=== PATIENT | male | born 1955 | race Caucasian/White ===

== ENCOUNTER 2016-10-07 12:51 | Emergency (ER) | payer OTHER ==
[~2016-10-07] VITALS: Ht 170.2 cm; Wt 91.5 kg
[~2016-10-07 12:51] MED LIST: ASPI81TA82 PO; DIAZ5 PO; IBUP600T26 PO; OMEP20TA PO; SIMV20TA PO; TAB-TAB PO; VITA500C PO
[2016-10-07 12:57] VITALS: BP 151/97; PULSE 71; RESP 15; TEMP 98.2; O2SAT 96
--- NOTE | 2016-10-07 13:14 | PD ---
HPI Chief Complaint: Foreign Body Time Seen by Provider: 13:08 Travel History International Travel<30 days: No Contact w/Intl Traveler<30days: No Traveled to known affect area: No History of Present Illness HPI This is a 60-year-old male presents for evaluation of foreign body to the dorsal right wrist. He reports a prior to arrival he was on tingling some efficient lines when a fishing hook became embedded in the dorsal aspect of his right wrist. He did not actually see this fishing hook prior to it puncturing the skin and so he does not know if the georgette was broken off prior to puncturing his skin. He does not know if it is a full fishing hook versus just the body of the fishing hook that is embedded. There is associated mild discomfort. Denies any range of motion limitations or numbness distal to the injury site. Last tetanus vaccination unknown. No other complaints. PFSH Past Medical History Arthritis: Yes (osteoarthritis) Anxiety: Yes Depression: Yes High Cholesterol: Yes Gastrointestinal Disorders: Yes (colon polyps) GERD: Yes Headaches: Yes Musculoskeletal: Yes (severe joint pain) Neurologic: Yes (head injury) Past Surgical History Eye Surgery: Yes (orbital fx) Other Surgery: Yes (DEVIATED SEPTUM REPAIR) Social History Alcohol Use: Yes (occassional) Tobacco Use: No Substance Use: Yes (occassional marijuana) Allergies-Medications (Allergen,Severity, Reaction): Coded Allergies: Codeine (Verified Adverse Reaction, Severe, Nausea/Vomiting, 10/07/16) Reported Meds & Prescriptions Reported Meds & Active Scripts Active Doxycycline Hyclate 100 Mg Cap 100 Mg PO BID 3 Days Reported Baclofen 10 Mg Tab 10 Mg PO Q8HR PRN Diazepam 5 Mg Tab 5 Mg PO BID PRN Omeprazole 20 Mg Tab 20 Mg PO DAILY Simvastatin 20 Mg Tab 20 Mg PO DAILY Review of Systems Musculoskeletal: Positive: Pain Skin: Positive Other (puncture wound, foreign body) Physical Exam Narrative GENERAL: Well-developed well-nourished male in no acute distress SKIN: Warm and dry. There is a physician embedded in the dorsal aspect of the right wrist. No bleeding. Extremities: Skin as noted above. Uncertain based on examination whether the actual fishing georgette is still intact underneath the skin. Data Data Last Documented VS Vital Signs Date Time Temp Pulse Resp B/P Pulse Ox O2 Delivery O2 Flow Rate FiO2 10/07/16 12:57 98.2 71 15 151/97 96 Orders Lidocai-Epi 1%-1:100,000 Inj (Xylocaine- (10/07/16 13:15) Tetanus/Diphtheria Tox Adult (Tetanus/Di (10/07/16 13:15) Wrist, Limited (Ap&Lat) (10/07/16 ) MDM Medical Decision Making Medical Screen Exam Complete: Yes Emergency Medical Condition: Yes Medical Record Reviewed: Yes Interpretation(s) CONCLUSION: A fishing pole is present in the dorsal soft tissues of the proximal carpal row with no underlying bony abnormality. Differential Diagnosis Retained foreign body, puncture wound, vascular injury Narrative Course Because history is uncertain in regards to the shape and wholeness of the fishing hook, and x-ray will be performed in order to assess the foreign body better. It will then be removed, he verbally consents. Tetanus status updated. The fishhook was removed without incident, the patient verbally consented to the procedure. He is being discharged with doxycycline prophylactically. Procedures Procedure Narrative Foreign body removal: Dorsal right wrist was prepped with Betadine. The area was anesthetized with lidocaine with epinephrine. The fish hook was pulled out through the entrance wound. The patient tolerated procedure well. Diagnosis Primary Impression: History of retained foreign body fully removed Additional Instructions: Medication as prescribed. Wash the wound with soap and water on a daily basis. Return for any evidence of infection such as increasing redness around the wound, red streaks up the arm, fevers. Med/Other Pt SpecificInfo: Prescription(s) given, Wound Care Scripts Doxycycline Hyclate 100 Mg [id number] Mg PO BID 3 Days Ref 0 Prov:Puja Dorsey MD 10/07/16 Disposition: 01 DISCHARGE HOME Condition: Stable Hayden Miller Oct 07, 2016 13:14
[2016-10-07] MEDS ORDERED: TETANUS/DIPHTHERIA TOXOID ADULT 0.5 ML VIAL IM ONE (13:15)
[2016-10-07] MEDS ORDERED: LIDOCAINE 1%/EPINEPHrine 1:100,000 SOLN 20 ML VIAL INFIL ONE (13:15)
[2016-10-07] MEDS ORDERED: BACL10TA PO (13:18)
[2016-10-07] MEDS ORDERED: OMEP20TA PO (13:18)
[2016-10-07] MEDS ORDERED: DIAZ5TAB PO (13:18)
[2016-10-07] MEDS ORDERED: SIMV20TA PO (13:18)
[2016-10-07] MEDS ORDERED: DOXY100C PO (13:31)
--- NOTE | 2016-10-07 13:31 | RADHPO ---
EXAM DATE/TIME: 10/07/2016 13:13 [facility] COMPARISON: No previous studies available for comparison. INDICATIONS : Right wrist pain. Patient has fishing hook stuck in wrist. MEDICAL HISTORY : None. SURGICAL HISTORY : None. ENCOUNTER: Initial ACUITY: 1 day PAIN SCORE: 4/10 LOCATION: Right wrist. FINDINGS: Two view examination of the right wrist demonstrates no soft tissue swelling, dislocation, or fractur e. The joint spaces are maintained. Bony mineralization is normal. A fishing hook is present in th e dorsal soft tissues over the proximal carpal row. CONCLUSION: A fishing pole is present in the dorsal soft tissues of the proximal carpal row with no underlying li ny abnormality. Nacho Ramirez MD on October 07, 2016 at 13:28 Board Certified Radiologist. This report was verified electronically.
== END 2016-10-07 13:39 | disposition home or self-care (01) ==
LOC: PHEFT 12:51
DX: S61.541A Puncture wound with foreign body of right wrist, initial encounter (principal); E78.00 Pure hypercholesterolemia, unspecified; Z23 Encounter for immunization; K21.9 Gastro-esophageal reflux disease without esophagitis; W45.8XXA Other foreign body or object entering through skin, initial encounter; Y93.89 Activity, other specified; Y92.9 Unspecified place or not applicable
CPT/HCPCS: 10120; 73100; 90471; 90714